=== PATIENT | female | born 1970 | race Hispanic/Latino ===

== ENCOUNTER 2023-10-05 08:28 | Emergency (ER) | payer BC, SELFPAY ==
[2023-10-05 09:16] LABS: Absolute Eosinophils 0.1 K/uL (0-0.5); Absolute Lymphocytes (CBC) 2.3 K/uL (0.7-4.9); Absolute Monocytes 0.3 K/uL (0.1-1.3); Absolute Neutrophil 3.7 K/uL (1.8-8.0); Basophils % 0.5 % (0-1.3); Eosinophils % 1.5 % (0-4.4); Hematocrit 39.6 % (36.0-45.0); Hemoglobin 13.3 g/dL (12.0-15.0); Lymphocytes % 35.6 % (15.3-44.8); MCH 30.8 pg (27.0-35.0); MCHC 33.6 g/dL (32.0-36.0); MCV 91.6 fL (80-100); MPV 7.2 fL (7.6-11.3); Monocytes % 4.6 % (3.3-12.3); Neutrophils % 57.8 % (41.7-73.7); Nucleated Red Blood Cells % 0.1 % (0-0); Platelets 351 thou/uL (152-406); RBC Red Blood Cell Count 4.32 M/uL (3.86-4.86); Red Cell Distribution Width 13.4 % (12.1-15.2)
--- NOTE | 2023-10-05 09:24 | RAD REPORT ---
EXAM DESCRIPTION: RAD - Chest Single View - 10/05/2023 9:16 am CLINICAL HISTORY: CHEST PAIN COMPARISON: No comparisons FINDINGS: Lines: None. Lungs: No evidence of edema or pneumonia. Pleural: No significant pleural effusions or pneumothorax. Cardiac: The heart size is within normal limits. Mediastinum: Within normal limits. Bones: No acute fractures. Other: None IMPRESSION: No acute cardiopulmonary disease.
[2023-10-05 09:28] LABS: ALT/SGPT 29 U/L (13-56); AST/SGOT 14 U/L (15-37); Alkaline Phosphatase 92 U/L (45-117); Anion Gap 8.5 mEq/L (5.0-15.0); BUN Blood Urea Nitrogen 12 mg/dL (7-18); Bicarbonate 24 mEq/L (21-32); Bilirubin Total 0.4 mg/dL (0.2-1.0); Glomerular Filtration Rate 105 ml/min (=/>90); Glucose Level 143 mg/dL (74-106); Magnesium 1.6 mg/dL (1.6-2.4); Potassium 3.5 mEq/L (3.5-5.1); Sodium Level 136 mEq/L (136-145)
[2023-10-05 09:29] LABS: Bilirubin Direct < 0.2 mg/dL (0-0.2); Bilirubin Indirect, Calculated 0.2 mg/dL (0.2-0.8); Troponin High Sensitivity < 3.0 pg/mL (<58.9)
--- NOTE | 2023-10-05 10:00 | EDPHYS ---
Physician Documentation [facility] Name: Sarah Jaime Age: 53 yrs Sex: Female : 1970 Arrival Date: 10/05/2023 Time: 08:28 Bed 5 Private MD: ED Physician Merlin Ace HPI: 10/04 09:10 This 53 yrs old Female presents to ER via Ambulatory with complaints of Chest ms3 Pain. 09:10 53-year-old female with past medical history of hypertension, hyperlipidemia, ms3 prediabetes presents to the emergency department for chest pain that has been intermittent for 1 month. Patient states the episode she is currently having began yesterday and has been constant since that time While at work she developed shortness of breath and elevated blood pressure prompting her to come to the emergency department. She endorses nausea and denies vomiting. She denies any alleviating or inciting factors. Historical: - Allergies: 08:40 No Known Allergies; ll1 - PMHx: 08:40 Hypertensive disorder; Hypercholesterolemia; Diabetes mellitus; ll1 - PSHx: 08:40 None; ll1 - Immunization history:: Adult Immunizations up to date. - Infectious Disease History:: Denies. - Social history:: Smoking status: Patient denies any tobacco usage or history of. ROS: 09:10 Constitutional: Negative for fever, and chills. Neck: Negative for injury, pain, and ms3 swelling, 09:10 Respiratory: Negative for shortness of breath, cough, wheezing, and pleuritic chest pain, Abdomen/GI: Negative for abdominal pain, nausea, vomiting, diarrhea, and constipation, MS/Extremity: Negative for injury and deformity, Skin: Negative for injury, rash, and discoloration, 09:10 Cardiovascular: Positive for chest pain, Exam: 09:10 Constitutional: This is a well developed, well nourished patient who is awake, alert, ms3 and in no acute distress. Head/Face: Normocephalic, atraumatic. Chest/axilla: Normal chest wall appearance and motion. Nontender with no deformity. Cardiovascular: Regular rate and rhythm with a normal S1 and S2. No gallops, murmurs, or rubs. Normal PMI, no JVD. No pulse deficits. Respiratory: Lungs have equal breath sounds bilaterally, clear to auscultation and percussion. No rales, rhonchi or wheezes noted. No increased work of breathing, no retractions or nasal flaring. Abdomen/GI: Soft, non-tender, with normal bowel sounds. No distension or tympany. No guarding or rebound. No evidence of tenderness throughout. 09:14 ECG was reviewed by the Attending Physician. ms3 Vital Signs: 08:40 BP 154 / 101; Pulse 82; Resp 16; Temp 97.2; Pulse Ox 99% on R/A; Weight 95.71 kg; ll1 Height 5 ft. 4 in. ; Pain 5/10; 08:40 Body Mass Index 36.22 (95.71 kg, 162.56 cm) ll1 08:40 Pain Scale: Adult ll1 MDM: 08:46 Patient medically screened. ms3 09:10 Differential diagnosis: abnormal EKG, acute myocardial infarction, coronary artery ms3 disease chest wall pain. 09:32 HEART Score: History: Slightly Suspicious (0), ECG: Normal (0), Age: > 45 and < 65 ms3 years (1), Risk Factors: > or = 3 Risk factors for atherosclerotic disease (2), [Hypercholesterolemia] [Hypertension] [DM] Troponin: < or = 1 x Normal Limit (0), Total Score = 3. Data reviewed: vital signs, nurses notes, lab test result(s), EKG, radiologic studies, and as a result, I will discharge patient. Consideration of Admission/Observation Escalation of care including admission/observation considered. HEART score 3. Will have patient follow up with cardiology outpatient.. Independent interpretation of the following test(s) in the Emergency Department X-Ray: My interpretation is CXR image reviewed by me does not reveal pna. Counseling: I had a detailed discussion with the patient and/or guardian regarding the historical points, exam findings, and any diagnostic results supporting the discharge/admit diagnosis, lab results, radiology results, the need for outpatient follow up, to return to the emergency department if symptoms worsen or persist or if there are any questions or concerns that arise at home. Special discussion: Based on the patient's history, exam, and Dx evaluation, there is no indication for emergent intervention or inpatient Tx. It is understood by the patient/guardian that if the Sx's persist or worsen they need to return immediately for re-evaluation. ED course: Discussed labs, chest x-ray, EKG with the patient. Patient to follow-up with Dr. Villa in 1 to 2 days. Patient understands and agrees with plan. All questions were answered. Return precautions discussed include worsening symptoms, or any other concerns. On reevaluation patient is alert and oriented x 4, no apparent distress, nontoxic-appearing, ambulatory emerged primary, speaking full sentences. 10/04 08:46 Order name: Basic Metabolic Panel; Complete Time: 09:32 ms3 10/04 08:46 Order name: CBC with Diff; Complete Time: 09:18 ms3 10/04 08:46 Order name: LFT's; Complete Time: 09:32 ms3 10/04 08:46 Order name: Magnesium; Complete Time: 09:32 ms3 10/04 08:46 Order name: Troponin HS; Complete Time: 09:32 ms3 10/04 08:46 Order name: XRAY Chest (1 view); Complete Time: 09:32 ms3 10/04 08:46 Order name: EKG; Complete Time: 08:47 ms3 10/04 08:46 Order name: Cardiac monitoring; Complete Time: 09:01 ms3 10/04 08:46 Order name: EKG - Nurse/Tech; Complete Time: 08:49 ms3 10/04 08:46 Order name: IV Saline Lock; Complete Time: 09:01 ms3 10/04 08:46 Order name: Labs collected and sent; Complete Time: 09:01 ms3 10/04 08:46 Order name: O2 Per Protocol; Complete Time: 09:01 ms3 10/04 08:46 Order name: O2 Sat Monitoring; Complete Time: 09:02 ms3 EC:14 Rate is 86 beats/min. Rhythm is regular. QRS [place] is Normal. ID interval is normal. QRS ms3 interval is normal. Clinical impression: Normal ECG. Interpreted by me. Reviewed by me. Administered Medications: No medications were administered Disposition Summary: 10/05/23 09:59 Discharge Ordered Notes: Location: Home ms3 Condition: Stable ms3 Diagnosis - Chest pain, unspecified ms3 - Essential (primary) hypertension ms3 Followup: ms3 - With: Gen Villa MD - When: 2 - 3 days - Reason: Recheck today's complaints Discharge Instructions: - Discharge Summary Sheet ms3 - Nonspecific Chest Pain, Adult ms3 - Hypertension, Adult ms3 Forms: - Medication Reconciliation Form ms3 - Antibiotic Education ms3 - Prescription Opioid Use ms3 - Patient Portal Instructions ms3 - Leadership Thank You Letter ms3 Signatures: Dispatcher [employer] Dirk England, RN RN ll1 Merlin Ace DO DO ms3
--- NOTE | 2023-10-05 10:00 | ER ---
Nurse's Notes [facility] Name: Sarah Jaime Age: 53 yrs Sex: Female : 1970 Arrival Date: 10/05/2023 Time: 08:28 Bed 5 Private MD: Diagnosis: Chest pain, unspecified;Essential (primary) hypertension Presentation: 10/04 08:40 Chief complaint: Patient states: CP intermittently for 1 month, worse the past two ll1 days. HTN at work [employer] 162/90. Coronavirus screen: Client denies travel out of the [place] in the last 14 days. At this time, the client does not indicate any symptoms associated with coronavirus-19. Ebola Screen: Patient denies travel to an Ebola-affected area in the 21 days before illness onset. Initial Sepsis Screen: Does the patient meet any 2 criteria? No. Patient's initial sepsis screen is negative. Does the patient have a suspected source of infection? No. Patient's initial sepsis screen is negative. Risk Assessment: Do you want to hurt yourself or someone else? Patient reports no desire to harm self or others. Onset of symptoms was September 05, 2023. 08:40 Method Of Arrival: Ambulatory ll1 08:40 Acuity: SARAH 3 ll1 Triage Assessment: 08:33 General: Appears in no apparent distress. Behavior is calm, cooperative, appropriate ll1 for age. Pain: Complains of pain in chest Pain currently is 5 out of 10 on a pain scale. Quality of pain is described as pressure, Pain began 1 month ago. Cardiovascular: Reports chest pain, shortness of breath. Historical: - Allergies: 08:40 No Known Allergies; ll1 - PMHx: 08:40 Hypertensive disorder; Hypercholesterolemia; Diabetes mellitus; ll1 - PSHx: 08:40 None; ll1 - Immunization history:: Adult Immunizations up to date. - Infectious Disease History:: Denies. - Social history:: Smoking status: Patient denies any tobacco usage or history of. Screenin:00 [facility] ED Fall Risk Assessment (Adult) History of falling in the last 3 months, iw including since admission No falls in past 3 months (0 pts) Confusion or Disorientation No (0 pts) Intoxicated or Sedated No (0 pts) Impaired Gait No (0 pts) Mobility Assist Device Used No (0 pt) Altered Elimination No (0 pt) Score/Fall Risk Level 0 - 2 = Low Risk. Abuse screen: Denies threats or abuse. Denies injuries from another. Nutritional screening: No deficits noted. Tuberculosis screening: No symptoms or risk factors identified. Assessment: 08:59 General: Appears in no apparent distress. Behavior is calm, cooperative. Pain: iw Complains of pain in chest Pain does not radiate. Pain currently is 4 out of 10 on a pain scale. Quality of pain is described as pressure, Pain began 2-3 days ago. Is intermittent. Neuro: Level of Consciousness is awake, alert, obeys commands, Oriented to person, place, time, situation, Moves all extremities. Full function. Cardiovascular: Capillary refill < 3 seconds in bilateral fingers Patient's skin is warm and dry. Chest pain. Respiratory: Respiratory effort is even, unlabored, Respiratory pattern is regular, symmetrical. GI: Abdomen is flat. Vital Signs: 08:40 BP 154 / 101; Pulse 82; Resp 16; Temp 97.2; Pulse Ox 99% on R/A; Weight 95.71 kg; ll1 Height 5 ft. 4 in. ; Pain 5/10; 08:40 Body Mass Index 36.22 (95.71 kg, 162.56 cm) ll1 08:40 Pain Scale: Adult ll1 ED Course: 08:35 EKG completed in triage. Results shown to MD. ll1 08:38 Patient arrived in ED. rg4 08:38 Arm band placed on Patient placed in an exam room, on a stretcher. ll1 08:41 Merlin Ace DO is Attending Physician. ms3 08:42 Triage completed. ll1 08:59 Initial lab(s) drawn, by ca, sent to lab. Inserted saline lock: 20 gauge in right iw antecubital area, using aseptic technique. Blood collected. 09:01 Sarah Arroyo, SELENA is Primary Nurse. iw 09:18 XRAY Chest (1 view) In Process Unspecified. EDMS 09:59 Gen Villa MD is Referral Physician. ms3 10:12 No provider procedures requiring assistance completed. IV discontinued, intact, iw bleeding controlled, No redness/swelling at site. Pressure dressing applied. Administered Medications: No medications were administered Medication: 09:01 VIS not applicable for this client. iw Outcome: 09:59 Discharge ordered by . ms3 10:12 Discharged to home ambulatory, iw 10:12 Condition: good 10:12 Discharge instructions given to patient, Instructed on discharge instructions, follow up and referral plans. Demonstrated understanding of instructions, follow-up care, 10:13 Patient left the ED. iw Signatures: Dispatcher [employer] EDSarah Oden RN RN iw Destinee Salinas rg4 Dirk Akbar RN RN ll1 Merlin Ace DO DO ms3 Corrections: (The following items were deleted from the chart) 08:46 08:40 Chief complaint: Patient states: CP intermittently for 1 month, worse the past ll1 two days. ll1
[2023-10-05 10:26] VITALS: BP 154/101; TEMP 97.2; O2SAT 99
--- NOTE | 2023-10-06 14:04 | EKG ---
Test Date: 2023-10-05 Test Time: 08:35:29 Clothing Examiner: GARIMA MEASUREMENT RESULTS: Intervals: Rate: 86 MI: 158 QRSD: 100 QT: 386 QTc: 461 [place]: P: 49 MI: 158 QRS: 69 T: 21 INTERPRETIVE STATEMENTS: Normal sinus rhythm Normal ECG No previous ECG available for comparison Electronically Signed On 10-06-23 14:00:12 CDT by Gen Villa
== END 2023-10-05 10:13 | disposition home or self-care (01) ==
LOC: ER 08:28
DX: R07.9 Chest pain, unspecified (principal); I10 Essential (primary) hypertension
CPT/HCPCS: 36415; 71045; 80048; 80076; 83735; 84484; 85025; 93005